=== PATIENT | male | born 1930 | race Hispanic/Latino ===

== ENCOUNTER 2018-03-01 17:03 | Emergency (ER) | payer OTHER, MEDICARE ==
[2018-03-01 17:58] LABS: BASOPHILS % (AUTO) 0.8 % (0.0-5.0); EOSINOPHILS % (AUTO) 9.5 % (0.0-8.0); HEMATOCRIT 43.9 % (42-54); LYMPHOCYTES % (AUTO) 27.6 % (21.0-51.0); MEAN CORPUSCULAR HEMOGLOBIN 32.3 pg (27.0-33.0); MEAN CORPUSCULAR HGB CONC 33.8 g/dL (32.0-36.0); MEAN CORPUSCULAR VOLUME 95.6 fL (79-99); MONOCYTES % (AUTO) 7.9 % (3.0-13.0); NEUTROPHILS % (AUTO) 54.2 % (40.0-77.0); NUCLEATED RED BLOOD CELLS 0.1 % (0.0-0.19); PLATELET COUNT (AUTO) 128 K/uL (130-400); RED BLOOD CELL COUNT(AUTO) 4.59 MIL/uL (4.50-6.20); RED CELL DISTRIBUTION WIDTH 14.2 % (11.0-15.5); WHITE BLOOD COUNT (AUTO) 6.8 K/uL (4.8-10.8)
[2018-03-01 18:00] LABS: CREATININE 1.2 mg/dL (0.5-1.5); POTASSIUM 4.4 mmol/L (3.5-5.1)
[2018-03-01 18:04] LABS: ALBUMIN 3.4 g/dL (3.5-5.0); BILIRUBIN,TOTAL 0.6 mg/dL (0.2-1.0); TOTAL PROTEIN, SERUM 6.6 g/dL (6.0-8.3)
== END 2018-03-01 18:49 | disposition home or self-care (01) ==
LOC: EDH 17:03
DX: B34.9 Viral infection, unspecified (principal); R51 Headache; I10 Essential (primary) hypertension
CPT/HCPCS: 36415; 80053; 85025

== ENCOUNTER 2018-03-31 21:10 | Observation (INO) | payer OTHER, MEDICARE ==
[~2018-03-31] VITALS: Ht 165.1 cm; Wt 75.9 kg
[2018-03-31 21:44] LABS: BASOPHILS % (AUTO) 0.4 % (0.0-5.0); EOSINOPHILS % (AUTO) 0.5 % (0.0-8.0); HEMATOCRIT 44.1 % (42-54); LYMPHOCYTES % (AUTO) 11.5 % (21.0-51.0); MEAN CORPUSCULAR HEMOGLOBIN 33.3 pg (27.0-33.0); MEAN CORPUSCULAR HGB CONC 34.9 g/dL (32.0-36.0); MEAN CORPUSCULAR VOLUME 95.4 fL (79-99); MONOCYTES % (AUTO) 0.6 % (3.0-13.0); PLATELET COUNT (AUTO) 99 K/uL (130-400); RED BLOOD CELL COUNT(AUTO) 4.63 MIL/uL (4.50-6.20); RED CELL DISTRIBUTION WIDTH 13.8 % (11.0-15.5); WHITE BLOOD COUNT (AUTO) 7.1 K/uL (4.8-10.8)
[2018-03-31 21:58] LABS: CREATININE 1.4 mg/dL (0.5-1.5); POTASSIUM 4.2 mmol/L (3.5-5.1)
[2018-03-31 22:03] LABS: ALBUMIN 3.5 g/dL (3.5-5.0); TOTAL PROTEIN, SERUM 6.8 g/dL (6.0-8.3)
[2018-03-31] MEDS ORDERED: ACETAMINOPHEN 325 MG TAB ONE (22:27)
[2018-03-31 22:40] LABS: APPEARANCE,URINE Cloudy (CLEAR); BILIRUBIN,URINE Negative (NEGATIVE); COLOR,URINE Yellow (YELLOW); GLUCOSE, URINE (UA) Negative (NEGATIVE); KETONES,URINE Negative (NEGATIVE); LEUKOCYTE ESTERASE ,URINE Moderate (NEGATIVE); NITRATE,URINE Positive (NEGATIVE); OCCULT BLOOD,URINE Trace (NEGATIVE); PH,URINE 6.5 (5.0-8.0); PROTEIN,URINE Trace (NEGATIVE)
[2018-03-31 22:49] LABS: BACTERIA,URINE Many /HPF (None Seen); RBC,URINE 0-1 /HPF (0-1); SQUAMOUS EPITHELIAL CELL,UR Rare /HPF (0-2)
[2018-03-31] MEDS ORDERED: CEFTRIAXONE SODIUM 1 GM ONE (22:54)
[2018-03-31] MEDS ORDERED: SODIUM CHLORIDE 0.9% 500ML 500 ML IV ONE (22:59)
[2018-04-01] VITALS (7 sets, daily range): BP systolic 103–123; BP diastolic 47–56
--- NOTE | 2018-04-01 00:30 | NUR ---
ADMISSION NOTE PT RECEIVED FROM ER AAOX3. VS VNL; SR 68. DENIES PAIN OR DISTRESS. EDUCATION PROVIDED ON PT SAFETY AND PENDING 2DECHO. VOICED UNDERSTANDING.
[2018-04-01] MEDS ORDERED: ACETAMINOPHEN 325 MG TAB PO PRN (01:30)
[2018-04-01] MEDS: CEFTRIAXONE SODIUM 1 GM IVP SCH (02:00)
[2018-04-01] MEDS ORDERED: CETI10TA57 PO (03:19)
[2018-04-01] MEDS ORDERED: LOSA25TA41 PO (03:19)
[2018-04-01] MEDS ORDERED: BENZ200C53 PO (03:19)
--- NOTE | 2018-04-01 09:10 | NUR ---
RESTING IN BED WITH HOB AT 30 DEGREES, RESP.'S EVEN AND UNLABORED. AAOX3. DENIES ANY SOB, DENIES ANY CURRENT PAIN. SMILES, TALKATIVE. ABD SOFT WITH (+) BOWEL SOUNDS, DENIES ANY C/O N/V. VOIDS. COMPLETE ASSESSMENT DONE. CALL LIGHT WITHIN REACH, VERBALIZED ABILITY TO USE. BED LOW, SIDE RAILS UP X2. DAUGHTER AT BEDSIDE. QUESTIONS ANSWERED FOR PT. AND DAUGHTER.
[2018-04-01] MEDS ORDERED: IPRATROPIUM/ALBUTEROL SULFATE 3 ML SOLUTION IH PRN (11:45)
--- NOTE | 2018-04-01 17:00 | NUR ---
RESTING IN BED WITH HOB AT 15 DEGREES, EYES CLOSED. RESP.'S EVEN AND UNLABORED. OPENS EYES TO VERBAL COMMAND. ATE DINNER. DENIES ANY C/O AT THIS TIME. STATES FEELING "MUCH BETTER." SMILES. CALL LIGHT WITHIN REACH.
[2018-04-02 03:00] VITALS: BP 126/58
[2018-04-02] MEDS: CEFTRIAXONE SODIUM 1 GM IVP SCH (03:22)
[2018-04-02 04:12] LABS: HEMATOCRIT 35.9 % (42-54); MEAN CORPUSCULAR HEMOGLOBIN 33.7 pg (27.0-33.0); MEAN CORPUSCULAR HGB CONC 35.6 g/dL (32.0-36.0); MEAN CORPUSCULAR VOLUME 94.8 fL (79-99); NUCLEATED RED BLOOD CELLS 0.1 % (0.0-0.19); PLATELET COUNT (AUTO) 79 K/uL (130-400); RED BLOOD CELL COUNT(AUTO) 3.79 MIL/uL (4.50-6.20); RED CELL DISTRIBUTION WIDTH 14.3 % (11.0-15.5); WHITE BLOOD COUNT (AUTO) 7.9 K/uL (4.8-10.8)
[2018-04-02 04:36] LABS: CREATININE 1.2 mg/dL (0.5-1.5); POTASSIUM 3.7 mmol/L (3.5-5.1)
[2018-04-02 07:58] VITALS: BP 135/62
--- NOTE | 2018-04-02 09:57 | NUR ---
Lauryn LOPEZ NP IN ROOM SPEAKING WITH PT. AND FAMILY MEMBERS AT BEDSIDE; QUESTIONS ANSWERED.
[2018-04-02 11:57] VITALS: BP 125/53
[2018-04-02] MEDS ORDERED: AMOX1TAB16 PO (14:49)
[2018-04-02] MEDS ORDERED: AMOXICILLIN/POTASSIUM CLAV 875-125 TABLET PO SCH (15:00)
[2018-04-02 16:18] VITALS: BP 149/64
--- NOTE | 2018-04-02 17:55 | NUR ---
HL REMOVED, CATHETER INTACT.
--- NOTE | 2018-04-02 18:00 | NUR ---
RESTING IN BED WITH HOB AT 30 DEGREES, RESP.'S EVEN AND UNLABORED. WATCHING TELEVISION. DENIES ANY C/O AT THIS TIME. LEFT DELTOID W/O EDEMA OR ERYTHEMA NOTED. NO ADVERSE REACTIONS FROM AUGMENTIN OR FLU VACCINE NOTED.
--- NOTE | 2018-04-02 18:15 | NUR ---
DISCHARGE INSTRUCTIONS GIVEN TO PT. AND DAUGHTER AT BEDSIDE IN [place] BY THIS NURSE, VERBALIZED MUTUAL UNDERSTANDING. QUESTIONS ANSWERED. DAUGHTER MADE AWARE FLU VACCINE ADMINISTERED TO PT., VERBALIZED UNDERSTANDING.
== END 2018-04-02 18:30 | disposition home or self-care (01) ==
LOC: EDH 21:10 → EDHIP 23:07 → 2AH 04-01 00:47
PROVIDERS: ADMIT Internal Medicine; ATTEND Internal Medicine
DX: N39.0 Urinary tract infection, site not specified (principal); J20.9 Acute bronchitis, unspecified; E03.9 Hypothyroidism, unspecified; I11.0 Hypertensive heart disease with heart failure; I25.2 Old myocardial infarction; I50.9 Heart failure, unspecified; Z23 Encounter for immunization
CPT/HCPCS: 36415 ×3; 71045; 80048; 80053; 81001; 82550; 83605 ×2; 83880; 84484; 85025; 85027; 87040 ×2; 87077; 87186; 87088; 87804 ×2; 93005; 93306; 94640; 94664; 96374; 99291; A4600; G0008; G0378 ×43; J0696 ×2; J7040; Q2035

== ENCOUNTER → 2018-07-15 | Outpatient (CLI) | payer OTHER, MEDICARE ==
[~2018-07-15] MED LIST: AMOX1TAB16 PO; BENZ200C53 PO; CETI10TA57 PO; LOSA25TA41 PO
== END | disposition home or self-care (01) ==
LOC: RAH 13:03
PROVIDERS: ATTEND Internal Medicine
DX: I70.90 Unspecified atherosclerosis (principal); I73.9 Peripheral vascular disease, unspecified
CPT/HCPCS: 93925

== ENCOUNTER 2018-11-20 19:25 | Emergency (ER) | payer OTHER, MEDICARE | END 2018-11-20 20:45 | disposition home or self-care (01) | LOC: EDH 19:25 | DX: I10 Essential (primary) hypertension (principal); G44.209 Tension-type headache, unspecified, not intractable; E07.9 Disorder of thyroid, unspecified; Z79.899 Other long term (current) drug therapy; Z90.49 Acquired absence of other specified parts of digestive tract | CPT/HCPCS: 36415; 93005 ==